=== PATIENT | female | born 1985 | race Caucasian/White ===

== ENCOUNTER 2020-04-22 03:04 | Emergency (ER) | payer BC ==
[~2020-04-22] VITALS: Ht 154.9 cm; Wt 68.2 kg
[2020-04-22 03:12] VITALS: Ht 154.9 cm; Wt 68.2 kg
[2020-04-22 03:51] LABS: UA SPECIFIC GRAVITY 1.025 (1.005-1.035); microscopic required? YES; urine erythrocyte 3+ (NEGATIVE)
[2020-04-22 05:13] VITALS: BP 104/66
== END 2020-04-22 05:13 | disposition home or self-care (01) ==
LOC: ED 03:04
PROVIDERS: Emergency Medicine
DX: N12 Tubulo-interstitial nephritis, not specified as acute or chronic (principal); Z88.2 Allergy status to sulfonamides
CPT/HCPCS: J0696